=== PATIENT | female | born 1935 | race Caucasian/White ===

== ENCOUNTER → 2019-10-09 | Outpatient (CLI) | payer OTHER ==
[~2019-10-09] MED LIST: ACETAMINOPHEN325 M1 PO; ARMOUR THYROID30 M1 PO; CARVEDILOL3.125 MG; CO Q-1010 MG; ECONOPRED PLUS10 M1 OPHTHALMIC; EYE DROPS; FISH OIL 1,0001 EAC5 PO; HTN MED; LEVAQUIN 500 M500 M5 PO; LUBRICANT DRY E15 ML OPHTHALMIC; MUCINEX TA600 MG/TA1 PO; PREDNISONE 10 M10 MG PO; PROVENTIL HFA6.7 G1 INH; [UNRECOGNIZED DRUG - OTHER]
== END ==
LOC: M.RAD 10:32
DX: J84.10 Pulmonary fibrosis, unspecified (principal)